=== PATIENT | male | born 1970 | race African-American/Black ===

== ENCOUNTER 2019-02-08 15:02 | Emergency (ER) | payer OTHER ==
[~2019-02-08] VITALS: Ht 170.2 cm; Wt 83.9 kg
[~2019-02-08 15:02] MED LIST: ACCUNEB SO1.25 MG/1; ASPIRIN EC81 M1 PO; CARVEDILOL25 MG PO; COUMADIN 4 MG TA4 M1 PO; COUMADIN 5 MG TA5 M1 PO; FERREX-150 PLU150 MG PO; HYDROCODONE-AP1 EAC6 PO; LASIX 40 MG TAB40 M1 PO; LIPITOR 20 MG T20 M1 PO; LISINOPRIL10 MG PO; PACERONE 200 M200 M1 PO; POTASSIUM20 PO; SENOKOT-S1 TA1 PO; UNICOMPLEX M TA1 TA1 PO
[2019-02-08] MEDS ORDERED: TOBRADEX EYE DRO5 ML OPHTHALMIC (16:09)
[2019-02-08 16:50] VITALS: BP 123/74
== END 2019-02-08 16:51 | disposition home or self-care (01) ==
LOC: ER 15:02
DX: S00.81XA Abrasion of other part of head, initial encounter (principal); S10.91XA Abrasion of unspecified part of neck, initial encounter; S50.811A Abrasion of right forearm, initial encounter; I10 Essential (primary) hypertension; J45.909 Unspecified asthma, uncomplicated; W37.8XXA Explosion and rupture of other pressurized tire, pipe or hose, initial encounter; Y93.89 Activity, other specified; Y92.524 Gas station as the place of occurrence of the external cause; Y99.8 Other external cause status

== ENCOUNTER → 2019-10-13 | Outpatient (CLI) | payer OTHER ==
[~2019-10-13] MED LIST changes: +TOBRADEX EYE DRO5 ML OPHTHALMIC
== END ==
LOC: SJCVCIMAG 09:45
DX: I07.1 Rheumatic tricuspid insufficiency (principal); I11.9 Hypertensive heart disease without heart failure; R00.2 Palpitations; E78.5 Hyperlipidemia, unspecified; I35.0 Nonrheumatic aortic (valve) stenosis; I42.9 Cardiomyopathy, unspecified